=== PATIENT | female | born 1955 | race Caucasian/White ===

== ENCOUNTER 2020-12-29 16:40 | Inpatient (IN) | payer MEDICARE, OTHER ==
[~2020-12-29] VITALS: Ht 165.1 cm; Wt 59.0 kg
[2020-12-29] MEDS ORDERED: AMLO5TAB4 PO (23:34)
[2020-12-29] MEDS ORDERED: ASPI-1420 PO (23:34)
[2020-12-29] MEDS ORDERED: HYPR15DR4 EACHEYE (23:36)
[2020-12-29] MEDS ORDERED: ROSU10TA2 PO (23:37)
[2020-12-29] MEDS ORDERED: LEVO25TA7 PO (23:39)
[2020-12-30] MEDS ORDERED: MAGNESIUM HYDROXIDE 30 ML UDC PO PRN
[2020-12-30] MEDS ORDERED: MAG HYDROX/AL HYDROX/SIMETH 30 ML UDC PO PRN
[2020-12-30 00:13] VITALS: BP 142/87
[2020-12-30] MEDS ORDERED: BLOOD SUGAR DIAGNOSTIC 1 EACH STRIP IN ONE (00:30)
--- NOTE | 2020-12-30 00:51 | NUR ---
GPS ADMISSION NOTE RECEIVED PATIENT FROM [facility]. PATIENT ARRIVED TO UNIT AT APPROX. 2300 VIA STRETCHER WITH 2 EMT ESCORTS. PATIENT ADMITTED ON A 5150 HOLD FOR DTS AND GD. PER HOLD PATIENT IS HAVING COMMAND HALLUCINATIONS TO HARM SELF AND TELLING HER THAT HER CHILDREN ARE . SHE HIT HERSELF WITH A GAVEL 30 TIMES YESTERDAY TO KILL HERSELF. SHE IS PARANOID, LOOKING AROUND THE ROOM AND SEEN TALKING TO SELF. PER DAUGHTER SHE IS NOT SLEEPING, HAS FRIDGE FULL OF FOOD AND NOT EATING. SHE IS UNABLE TO VOICE REASONABLE PLAN OF SELF-CARE. THE 5150 WAS REVIEWED AND THE DOCUMENTATION IN THE 5150 HOLD APPEARS TO REFLECT THE PRESENTATION OF THE PATIENT. UPON FACE TO FACE ASSESSMENT PATIENT IS NOTED TO BE CALM, WITHDRAWN, COOPERATIVE. PATIENT IS CURRENTLY LYING IN BED RESTING COMFORTABLY. BREATHING IS EVEN AND UNLABORED. PATIENT IS ALERT AND ORIENTED X 3 ON ROOM AIR. PATIENT IS AMBULATORY WITH STEADY GAIT. PATIENT DENIES SI/HI AT THIS TIME. PATIENT SIGNED PAPERWORK AND WAS GIVEN PATIENT RIGHT'S BOOKLET AND ADVISED OF HER HOLD. ALL QUESTIONS ANSWERED AT THIS TIME. PATIENT IS UNDER THE PSYCHIATRIC CARE TO DR. BRAN AND MEDICAL CARE TO DR. LEDEZMA. PATIENT BELONGINGS INVENTORIED AND CHECKED FOR CONTRABAND. ALL CONTRABAND REMOVED AND STORED IN PATIENTS LOCKER IN [facility]. PATIENTS ADVANCED DIRECTIVES PREFERENCE, IMMUNIZATIONS QUESTIONER, NECESSARY PAPERWORK COMPLETED AND PLACED IN CHART. SKIN ASSESSMENT COMPLETED ON ADMISSION WITH NO SKIN ISSUES NOTED AT THIS TIME. PATIENT ORIENTED TO ROOM, FLOOR, AND STAFF. PATIENT EDUCATED ON USE OF CALL HU. PATIENT BED SIDE RAILS UP X 2 FOR SAFETY. PATIENTS BED IS LOCKED AND IN LOWEST POSITION. WILL CONTINUE TO MONITOR Q15MIN FOR BEHAVIOR AND SAFETY.
[2020-12-30 06:29] LABS: BASOPHILS % (AUTO) 0.5 % (0.0-2.0); EOSINOPHILS % (AUTO) 1.8 % (0.0-6.0); HEMATOCRIT 42 % (33-45); HEMOGLOBIN 14.2 g/dL (11.5-14.8); LYMPHOCYTES # (AUTO) 2.1 K/uL (0.8-4.8); LYMPHOCYTES % (AUTO) 26.8 % (20.0-44.0); MEAN CORPUSCULAR HGB CONC 34 g/dl (31.0-36.0); MEAN CORPUSCULAR VOLUME 94 fL (82-100); MONOCYTES # (AUTO) 0.7 K/uL (0.1-1.30); MONOCYTES % (AUTO) 8.7 % (2.0-12.0); NEUTROPHILS # (AUTO) 4.8 K/uL (1.8-8.9); NEUTROPHILS % (AUTO) 62.2 % (43.0-81.0); PLATELET COUNT (AUTO) 322 K/uL (150-450); RED BLOOD CELL COUNT(AUTO) 4.48 MIL/uL (4.0-5.2); WHITE BLOOD COUNT (AUTO) 7.7 K/uL (4.3-11.0)
[2020-12-30 07:16] LABS: CALCIUM, SERUM 9.2 mg/dL (8.5-10.1); MAGNESIUM 2.3 mg/dL (1.8-2.4); PHOSPHORUS 3.7 mg/dL (2.5-4.9); POTASSIUM 3.7 mmol/L (3.5-5.1)
[2020-12-30 07:34] LABS: THYROID STIMULATING HORMONE 4.136 uIU/mL (0.358-3.74)
[2020-12-30 08:00] VITALS: BP 125/75
[2020-12-30] MEDS ORDERED: GLUCERNA SHAKE 237 ML CAN PO SCH (08:00)
[2020-12-30] MEDS: LEVOTHYROXINE SODIUM 25 MCG TABLET PO SCH (08:35)
[2020-12-30] MEDS: AMLODIPINE BESYLATE 5 MG TABLET PO SCH (08:35)
[2020-12-30] MEDS: ASPIRIN EC 81 MG TABLET.DR PO SCH (08:35)
[2020-12-30] MEDS: POLYVINYL ALCOHOL 15 ML BOTTLE OP SCH (08:36)
--- NOTE | 2020-12-30 09:52 | NUR ---
MARIA ISABEL Initial Discharge: Patient currently resides home alone at [address] [place] [address]; ([phone]). Patient stated she is unsure if she would want to go back home or would want this technical report writer to find her a SNF. MARIA ISABEL will work with the MD and family to coordinate appropriate discharge.
--- NOTE | 2020-12-30 09:58 | NUR ---
Social Work Note/Substance Abuse Intervention: Patient was provided with a brief substance abuse intervention and referred to [facility] ([phone]), [facility] ([phone]), and [facility] ([phone]) for drinking beer everyday.
--- NOTE | 2020-12-30 11:46 | NUR ---
SW Family Contact: SW contacted patient's daughter Treva ([phone]) and left a detailed voicemail in regards to gathering collateral and discussing treatment/discharge plan.
[2020-12-30] MEDS: THIAMINE HCL 100 MG TABLET PO SCH (13:39)
--- NOTE | 2020-12-30 14:11 | NUR ---
SW Family Contact: SW contacted patient's daughter Treva ([phone]) and discussed patient's discharge/treatment plan. SW expressed that patient is unsure if she would want to go back home or would want a SNF. Daughter stated pt can make a decision in terms of what would be best for her as family wants pt to improve.
[2020-12-30] MEDS: ENSURE ENLIVE 237 ML LIQUID (VANILLA) PO SCH ×2 (14:43→16:00)
[2020-12-30] MEDS: ACETAMINOPHEN 325 MG TABLET PO PRN (15:59)
[2020-12-30 16:00] VITALS: BP 149/81
[2020-12-30] MEDS: ATORVASTATIN 40 MG TABLET PO SCH (18:08)
[2020-12-30 20:00] VITALS: BP 135/82
[2020-12-30] MEDS: ZOLPIDEM TARTRATE 5 MG TABLET PO PRN (20:55)
[2020-12-30] MEDS: QUETIAPINE FUMARATE 25 MG TABLET PO SCH (21:05)
[2020-12-31 08:00] VITALS: BP 126/90
[2020-12-31] MEDS: ENSURE ENLIVE 237 ML LIQUID (VANILLA) PO SCH ×2 (08:30→16:50)
[2020-12-31] MEDS: MULTIPLE VIT (LYCOPENE/FA/MV,CA,IRON,MIN/LUT)1 TAB PO SCH (08:33)
[2020-12-31] MEDS: ASPIRIN EC 81 MG TABLET.DR PO SCH (08:33)
[2020-12-31] MEDS: Fluoxetine 10 mg capsule PO SCH (08:33)
[2020-12-31] MEDS: THIAMINE HCL 100 MG TABLET PO SCH (08:34)
[2020-12-31] MEDS: LEVOTHYROXINE SODIUM 25 MCG TABLET PO SCH (08:34)
[2020-12-31] MEDS: AMLODIPINE BESYLATE 5 MG TABLET PO SCH (08:34)
[2020-12-31] MEDS: LORAZEPAM 1 MG TABLET PO PRN (08:34)
[2020-12-31] MEDS: POLYVINYL ALCOHOL 15 ML BOTTLE OP SCH (08:35)
[2020-12-31 16:00] VITALS: BP 125/78
[2020-12-31] MEDS: ATORVASTATIN 40 MG TABLET PO SCH (17:07)
[2020-12-31 20:30] VITALS: BP 151/91
[2020-12-31] MEDS: QUETIAPINE FUMARATE 25 MG TABLET PO SCH (21:12)
[2020-12-31] MEDS: ZOLPIDEM TARTRATE 5 MG TABLET PO PRN (21:44)
--- NOTE | 2020-12-31 21:44 | NUR ---
GPS-RN NOTES: INSOMNIA PATIENT C/O INABILITY TO SLEEP. PRN AMBIEN 5MG PO GIVEN ORDERED. WILL CONTINUE TO MONITOR.
[2021-01-01 08:00] VITALS: BP 153/80
[2021-01-01] MEDS: LEVOTHYROXINE SODIUM 25 MCG TABLET PO SCH (08:02)
[2021-01-01] MEDS: MULTIPLE VIT (LYCOPENE/FA/MV,CA,IRON,MIN/LUT)1 TAB PO SCH (08:26)
[2021-01-01] MEDS: POLYVINYL ALCOHOL 15 ML BOTTLE OP SCH (08:26)
[2021-01-01] MEDS: ASPIRIN EC 81 MG TABLET.DR PO SCH (08:26)
[2021-01-01] MEDS: Fluoxetine 10 mg capsule PO SCH (08:26)
[2021-01-01] MEDS: THIAMINE HCL 100 MG TABLET PO SCH (08:26)
[2021-01-01] MEDS: AMLODIPINE BESYLATE 5 MG TABLET PO SCH (08:27)
[2021-01-01] MEDS: ENSURE ENLIVE 237 ML LIQUID (VANILLA) PO SCH ×2 (08:36→16:30)
--- NOTE | 2021-01-01 09:00 | NUR ---
RN NOTE- PT IS INTERNALLY PREOCCUPIED, PARANOID AND MUMBLING TO SELF. CALM INTERACTIVE DENIES ALL MED COMPLIANT
[2021-01-01 16:00] VITALS: BP 124/75
[2021-01-01] MEDS: NICOTINE PATCH (7MG) 7 MG PATCH.TD24 TD SCH (16:30)
[2021-01-01] MEDS: ATORVASTATIN 40 MG TABLET PO SCH (17:25)
[2021-01-01] MEDS: LORAZEPAM 1 MG TABLET PO PRN (18:10)
--- NOTE | 2021-01-01 18:10 | NUR ---
RN NOTE- PT INTERNALLY PREOCCUPIED TODAY, HEARING VOICES, ENCOURAGED PT TO BE I DAY ROOM AROUND STAFF AND OTHERS. ANXIOUS NOW. PACING. ATIVAN 1 MG ADMINISTERED
--- NOTE | 2021-01-01 19:30 | NUR ---
GPS RN NOTES RECEIVED OUTSIDE HER ROOM,SITTING ON CHAIR BY THE HALLWAYS,A/O X1-2,NEEDS TO BE RE ORIENTED ON DAYS AND DATE,AMBULATE WITH STEADY GAIT,CALM,REDIRECTABLE,MED COMPLIANT,WILL CONTINUE TO TO MONITOR BEHAVIOR
[2021-01-01 20:16] VITALS: BP 132/81
[2021-01-01] MEDS: ZOLPIDEM TARTRATE 5 MG TABLET PO PRN (21:16)
[2021-01-01] MEDS: QUETIAPINE FUMARATE 25 MG TABLET PO SCH (21:16)
--- NOTE | 2021-01-01 21:16 | NUR ---
GPS RN NOTES C/O INSOMNIA,AMBIEN 5MG PO GIVEN ORDERED.
--- NOTE | 2021-01-02 05:00 | NUR ---
GPS RN NOTES AWAKE THIS TIME,SITTING ON CHAIR BY TELEPHONE STATION.
--- NOTE | 2021-01-02 06:57 | NUR ---
GPS RN NOTES STILL SITTING BY THE TELEPHONE SNYDER,ENCOURAGED TO GO BACK TO BED BUR REFUSED.SAYS I WANNA TALK TO MY SON BEFORE I GO,DENIES HEARING VOICES,COMMUNICATE WHEN ENGAGED.AMBULATE WITH STEADY GAIT.
[2021-01-02 08:00] VITALS: BP 115/75
[2021-01-02] MEDS: ENSURE ENLIVE 237 ML LIQUID (VANILLA) PO SCH ×2 (08:19→16:53)
[2021-01-02] MEDS: POLYVINYL ALCOHOL 15 ML BOTTLE OP SCH (08:20)
[2021-01-02] MEDS: AMLODIPINE BESYLATE 5 MG TABLET PO SCH (08:23)
[2021-01-02] MEDS: THIAMINE HCL 100 MG TABLET PO SCH (08:23)
[2021-01-02] MEDS: MULTIPLE VIT (LYCOPENE/FA/MV,CA,IRON,MIN/LUT)1 TAB PO SCH (08:23)
[2021-01-02] MEDS: NICOTINE PATCH (7MG) 7 MG PATCH.TD24 TD SCH (08:23)
[2021-01-02] MEDS: Fluoxetine 10 mg capsule PO SCH (08:23)
[2021-01-02] MEDS: LEVOTHYROXINE SODIUM 25 MCG TABLET PO SCH (08:23)
[2021-01-02] MEDS: ASPIRIN EC 81 MG TABLET.DR PO SCH (08:23)
[2021-01-02 16:00] VITALS: BP 142/68
[2021-01-02] MEDS: ATORVASTATIN 40 MG TABLET PO SCH (16:53)
[2021-01-02 19:57] VITALS: BP 152/87
[2021-01-02] MEDS: ZOLPIDEM TARTRATE 5 MG TABLET PO PRN (22:28)
[2021-01-02] MEDS: QUETIAPINE FUMARATE 25 MG TABLET PO SCH (22:28)
[2021-01-02] MEDS: ACETAMINOPHEN 325 MG TABLET PO PRN (22:28)
--- NOTE | 2021-01-02 23:31 | NUR ---
GPS RN NOTE - INSOMNIA PT NOTED WITH WANDERING AND DIFFICULTY FALLING ASLEEP. ADMINISTERED AMBIEN ORDERED. WILL REASSESS FOR SLEEP IN 1 HOUR.
--- NOTE | 2021-01-03 07:30 | NUR ---
PT RECEIVED RESTING COMFORTABLE IN BED. NO S/S OR C/O PAIN OR DISTRESS NOTED. SIDE RAILS UP X2, CALL LIGHT LEFT WITHIN REACH. WILL CONTINUE PLAN OF CARE.
[2021-01-03 08:00] VITALS: BP 140/80
[2021-01-03] MEDS: NICOTINE PATCH (7MG) 7 MG PATCH.TD24 TD SCH (09:27)
[2021-01-03] MEDS: Fluoxetine 10 mg capsule PO SCH (09:27)
[2021-01-03] MEDS: AMLODIPINE BESYLATE 5 MG TABLET PO SCH (09:27)
[2021-01-03] MEDS: ASPIRIN EC 81 MG TABLET.DR PO SCH (09:28)
[2021-01-03] MEDS: POLYVINYL ALCOHOL 15 ML BOTTLE OP SCH (09:28)
[2021-01-03] MEDS: MULTIPLE VIT (LYCOPENE/FA/MV,CA,IRON,MIN/LUT)1 TAB PO SCH (09:28)
[2021-01-03] MEDS: THIAMINE HCL 100 MG TABLET PO SCH (09:28)
[2021-01-03] MEDS: LEVOTHYROXINE SODIUM 25 MCG TABLET PO SCH (09:28)
[2021-01-03] MEDS: ENSURE ENLIVE 237 ML LIQUID (VANILLA) PO SCH ×2 (09:29→17:43)
[2021-01-03 16:00] VITALS: BP 131/74
[2021-01-03] MEDS: ATORVASTATIN 40 MG TABLET PO SCH (17:42)
--- NOTE | 2021-01-03 18:34 | NUR ---
CHANGE OF SHIFT REPORT PT RESTING COMFORTABLY IN BED. NO S/S OR C/O PAIN OR DISTRESS NOTED. SIDE RAILS UP X2. PT KEPT CLEAN, DRY, AND COMFORTABLE. NO SIGNIFICANT CHANGES SINCE PREVIOUS SHIFT. WILL GIVE REPORT TO VALERIE CROWE.
[2021-01-03] MEDS: LORAZEPAM 1 MG TABLET PO PRN (19:43)
--- NOTE | 2021-01-03 19:43 | NUR ---
RN GPS notes Pt is feeling anxious and requesting meds. Administered ativan 1 mg/po/prn as ordered. Safety precautions is maintained. Will continue to monitor.
[2021-01-03 19:58] VITALS: BP 163/98
[2021-01-03 20:00] VITALS: BP 133/72
[2021-01-03] MEDS: QUETIAPINE FUMARATE 25 MG TABLET PO SCH (21:32)
[2021-01-04] MEDS: LEVOTHYROXINE SODIUM 25 MCG TABLET PO SCH (07:30)
[2021-01-04 08:00] VITALS: BP 122/73
[2021-01-04] MEDS: AMLODIPINE BESYLATE 5 MG TABLET PO SCH (08:17)
[2021-01-04] MEDS: MULTIPLE VIT (LYCOPENE/FA/MV,CA,IRON,MIN/LUT)1 TAB PO SCH (08:19)
[2021-01-04] MEDS: THIAMINE HCL 100 MG TABLET PO SCH (08:19)
[2021-01-04] MEDS: NICOTINE PATCH (7MG) 7 MG PATCH.TD24 TD SCH (08:19)
[2021-01-04] MEDS: ASPIRIN EC 81 MG TABLET.DR PO SCH (08:20)
[2021-01-04] MEDS: ENSURE ENLIVE 237 ML LIQUID (VANILLA) PO SCH ×2 (08:20→17:03)
[2021-01-04] MEDS: POLYVINYL ALCOHOL 15 ML BOTTLE OP SCH (08:22)
[2021-01-04] MEDS: FLUOXETINE HCL 20 MG/5 ML UDC PO SCH (09:21)
--- NOTE | 2021-01-04 12:04 | NUR ---
Court Hearing: Patient's court hearing for [id number] was today and it was upheld for GD.
[2021-01-04 16:15] VITALS: BP 134/85
[2021-01-04] MEDS: ATORVASTATIN 40 MG TABLET PO SCH (17:03)
[2021-01-04] MEDS: LORAZEPAM 1 MG TABLET PO PRN (18:21)
--- NOTE | 2021-01-04 18:29 | NUR ---
PATIENT ANXIOUS ,IRRITABLE MEDICATED WITH ATIVAN 1MG ,WILL CONTINUE TO MONITOR.
[2021-01-04 20:03] VITALS: BP 144/89
[2021-01-04] MEDS: QUETIAPINE FUMARATE 25 MG TABLET PO SCH (21:11)
[2021-01-04] MEDS: ZOLPIDEM TARTRATE 5 MG TABLET PO PRN (22:01)
[2021-01-05 08:00] VITALS: BP 131/77
[2021-01-05] MEDS: MULTIPLE VIT (LYCOPENE/FA/MV,CA,IRON,MIN/LUT)1 TAB PO SCH (08:38)
[2021-01-05] MEDS: ASPIRIN EC 81 MG TABLET.DR PO SCH (08:38)
[2021-01-05] MEDS: THIAMINE HCL 100 MG TABLET PO SCH (08:38)
[2021-01-05] MEDS: LEVOTHYROXINE SODIUM 25 MCG TABLET PO SCH (08:38)
[2021-01-05] MEDS: NICOTINE PATCH (7MG) 7 MG PATCH.TD24 TD SCH (08:38)
[2021-01-05] MEDS: AMLODIPINE BESYLATE 5 MG TABLET PO SCH (08:39)
[2021-01-05] MEDS: ENSURE ENLIVE 237 ML LIQUID (VANILLA) PO SCH ×2 (08:39→17:29)
[2021-01-05] MEDS: POLYVINYL ALCOHOL 15 ML BOTTLE OP SCH (08:44)
[2021-01-05] MEDS: FLUOXETINE HCL 20 MG/5 ML UDC PO SCH (08:46)
[2021-01-05] MEDS: ARIPIPRAZOLE 5 MG TABLET PO SCH ×2 (12:00→12:05)
--- NOTE | 2021-01-05 12:17 | NUR ---
RN-NOTES PATIENT REFUSED ABILIFY 5MG P.O EXPLAINED RISK AND BENEFITS BUT PATIENT STILL REFUSED. OFFERED X3
--- NOTE | 2021-01-05 13:15 | NUR ---
SW Family Contact: SW spoke with patient's daughter Treva ([phone]) who gave three nursing facility options for this SW to fax clinicals: [facility] ([phone]), [facility] ([phone]), and [facility] ([phone]). SW gave daughter another option of [facility] SNF. Daughter would want this SW to send to all.
--- NOTE | 2021-01-05 13:17 | NUR ---
SNF Contact/Referral: MARIA ISABEL contacted [facility] ([phone]) and spoke with Amy from Admissions ([phone], F:[phone]) who stated that they will review pt's clinicals. MARIA ISABEL contacted [facility] ([phone]), and [facility] ([phone]) who stated that they are not psych focused facilities SW faxed clinicals to [facility] [[email or web address]] ([phone]) to Justyn grace for placement option.
[2021-01-05 16:00] VITALS: BP 142/85
[2021-01-05] MEDS: ATORVASTATIN 40 MG TABLET PO SCH (17:29)
--- NOTE | 2021-01-05 17:30 | NUR ---
RN-NOTES PATIENT REFUSED LIPITOR 80 MG P.O EXPLAINED RISK AND BENEFITS BUT PATIENT STILL REFUSED. OFFERED X3
[2021-01-05 20:00] VITALS: BP 146/88
[2021-01-05] MEDS: TRAZODONE 50 MG TABLET PO SCH (21:09)
[2021-01-06 08:00] VITALS: BP 148/73
[2021-01-06] MEDS: LEVOTHYROXINE SODIUM 25 MCG TABLET PO SCH (08:38)
[2021-01-06] MEDS: NICOTINE PATCH (7MG) 7 MG PATCH.TD24 TD SCH (08:38)
[2021-01-06] MEDS: MULTIPLE VIT (LYCOPENE/FA/MV,CA,IRON,MIN/LUT)1 TAB PO SCH (09:49)
[2021-01-06] MEDS: THIAMINE HCL 100 MG TABLET PO SCH (09:49)
[2021-01-06] MEDS: ENSURE ENLIVE 237 ML LIQUID (VANILLA) PO SCH ×2 (09:49→17:01)
[2021-01-06] MEDS: ARIPIPRAZOLE 5 MG TABLET PO SCH (09:49)
[2021-01-06] MEDS: ASPIRIN EC 81 MG TABLET.DR PO SCH (09:50)
[2021-01-06] MEDS: AMLODIPINE BESYLATE 5 MG TABLET PO SCH (09:50)
[2021-01-06] MEDS: FLUOXETINE HCL 20 MG/5 ML UDC PO SCH (09:51)
[2021-01-06] MEDS: POLYVINYL ALCOHOL 15 ML BOTTLE OP SCH (09:51)
--- NOTE | 2021-01-06 15:41 | NUR ---
SNF Contac SW contacted [facility] ([phone]) and spoke with Amy from Admissions ([phone], F:[phone]) who stated they will accept pt but would have to see if they have a bed available at the time of her dc. MARIA ISABEL spoke with Kenzie admissions from [facility] ([phone]) who stated that they accepted pt.
--- NOTE | 2021-01-06 15:43 | NUR ---
MARIA ISABEL Family Contact: MARIA ISABEL contacted patient's daughter Treva ([phone]) and stated that [facility] accepted pt but would need to see if they have a bed available at the time of her dc. SW shared [facility] also accepted pt and are saving a bed. Daughter is agreeable to whichever one pt goes too.
[2021-01-06 16:00] VITALS: BP 123/75
[2021-01-06] MEDS: ATORVASTATIN 40 MG TABLET PO SCH (17:01)
--- NOTE | 2021-01-06 18:56 | NUR ---
RN-NOTES PATIENT C/O CONSTIPATION AND REQUESTING FOR MOM.MOM 30ML GIVEN PRN ORDER. WILL ENDORSE TO INCOMING NURSE TO CONTINUE MONITORING AND CONTINUITY OF CARE.
[2021-01-06 20:01] VITALS: BP 143/80
[2021-01-06] MEDS: TRAZODONE 50 MG TABLET PO SCH (21:06)
[2021-01-07] MEDS: ENSURE ENLIVE 237 ML LIQUID (VANILLA) PO SCH ×2 (07:56→16:50)
[2021-01-07] MEDS: POLYVINYL ALCOHOL 15 ML BOTTLE OP SCH (07:56)
[2021-01-07 08:00] VITALS: BP 122/78
[2021-01-07] MEDS: LEVOTHYROXINE SODIUM 25 MCG TABLET PO SCH (08:01)
[2021-01-07] MEDS: ASPIRIN EC 81 MG TABLET.DR PO SCH (08:02)
[2021-01-07] MEDS: ARIPIPRAZOLE 5 MG TABLET PO SCH (08:02)
[2021-01-07] MEDS: THIAMINE HCL 100 MG TABLET PO SCH (08:02)
[2021-01-07] MEDS: AMLODIPINE BESYLATE 5 MG TABLET PO SCH (08:02)
[2021-01-07] MEDS: MULTIPLE VIT (LYCOPENE/FA/MV,CA,IRON,MIN/LUT)1 TAB PO SCH (08:02)
[2021-01-07] MEDS: NICOTINE PATCH (7MG) 7 MG PATCH.TD24 TD SCH (08:02)
[2021-01-07] MEDS: LORAZEPAM 1 MG TABLET PO PRN ×2 (08:02→22:01)
[2021-01-07] MEDS: FLUOXETINE HCL 20 MG/5 ML UDC PO SCH (08:05)
[2021-01-07 16:00] VITALS: BP 121/73
[2021-01-07] MEDS: ATORVASTATIN 40 MG TABLET PO SCH (17:36)
[2021-01-07 19:59] VITALS: BP 126/68
--- NOTE | 2021-01-07 22:03 | NUR ---
GPS RN NOTES: Ativan 1mg given PO at 2201 d/t anxiety, restlessness. Will continue to monitor.
[2021-01-07] MEDS: TRAZODONE 50 MG TABLET PO SCH (22:32)
--- NOTE | 2021-01-08 07:03 | NUR ---
GPS RN CLOSING NOTES: PATIENT IS CURRENTLY LAYING IN BED SLEEPING COMFORTABLY. PATIENT SLEPT 9HRS THIS SHIFT. NO S/S OF DISTRESS. RESPIRATION EVEN AND UNLABORED WITH EQUAL RISE AND FALL OF THE CHEST, ON ROOM AIR. ALL PATIENT CARE NEEDS HAVE BEEN MET ANTICIPATED. BED IN LOWEST POSITION AND LOCKED, SIDE RAILS UP X2 FOR SAFETY. WILL CONTINUE TO MONITOR AND AND ENDORSE TO AM SHIFT.
[2021-01-08 08:00] VITALS: BP 112/64
[2021-01-08] MEDS: LEVOTHYROXINE SODIUM 25 MCG TABLET PO SCH (08:11)
[2021-01-08] MEDS: AMLODIPINE BESYLATE 5 MG TABLET PO SCH (08:11)
[2021-01-08] MEDS: MULTIPLE VIT (LYCOPENE/FA/MV,CA,IRON,MIN/LUT)1 TAB PO SCH (08:11)
[2021-01-08] MEDS: FLUOXETINE HCL 20 MG/5 ML UDC PO SCH (08:11)
[2021-01-08] MEDS: THIAMINE HCL 100 MG TABLET PO SCH (08:12)
[2021-01-08] MEDS: ASPIRIN EC 81 MG TABLET.DR PO SCH (08:12)
[2021-01-08] MEDS: NICOTINE PATCH (7MG) 7 MG PATCH.TD24 TD SCH (08:12)
[2021-01-08] MEDS: ARIPIPRAZOLE 5 MG TABLET PO SCH (08:13)
[2021-01-08] MEDS: POLYVINYL ALCOHOL 15 ML BOTTLE OP SCH (08:14)
[2021-01-08] MEDS: ENSURE ENLIVE 237 ML LIQUID (VANILLA) PO SCH ×2 (08:20→16:22)
[2021-01-08 16:00] VITALS: BP 134/85
[2021-01-08] MEDS: ATORVASTATIN 40 MG TABLET PO SCH (17:10)
[2021-01-08 20:00] VITALS: BP_SYST 116; BP_DIAS 62; BP_DIAS 65
[2021-01-08] MEDS: TRAZODONE 50 MG TABLET PO SCH (21:52)
[2021-01-09] MEDS: LORAZEPAM 1 MG TABLET PO PRN (02:21)
--- NOTE | 2021-01-09 02:21 | NUR ---
RN NOTES: AWAKE, REFUSE TO GO BACK IN HER ROOM AFTER SNACK WAS GIVEN TO HER, WALKING IN THE AILES AND GOING TO AND FRO, TALKING TO SELF, PRN MEDICATION GIVEN.
--- NOTE | 2021-01-09 06:26 | NUR ---
RN NOTES: AROUND 0300 WALKING AROUND, TRYING TO OPEN THE DOOR, REDIRECTED, WENT TO TV ROOM AND SIT THERE FOR AWHILE AFTER 20-30 MIN. ACCOMPANIED BACK TO HER ROOM, SHE FOLLOWED THE INSTRUCTION AND WENT BACK TO SLEEP AT AROUND 0400.
[2021-01-09 08:00] VITALS: BP 109/72
[2021-01-09] MEDS: LEVOTHYROXINE SODIUM 25 MCG TABLET PO SCH (08:05)
[2021-01-09] MEDS: ARIPIPRAZOLE 5 MG TABLET PO SCH (08:06)
[2021-01-09] MEDS: MULTIPLE VIT (LYCOPENE/FA/MV,CA,IRON,MIN/LUT)1 TAB PO SCH (08:07)
[2021-01-09] MEDS: NICOTINE PATCH (7MG) 7 MG PATCH.TD24 TD SCH (08:07)
[2021-01-09] MEDS: AMLODIPINE BESYLATE 5 MG TABLET PO SCH (08:07)
[2021-01-09] MEDS: ASPIRIN EC 81 MG TABLET.DR PO SCH (08:07)
[2021-01-09] MEDS: THIAMINE HCL 100 MG TABLET PO SCH (08:07)
[2021-01-09] MEDS: ENSURE ENLIVE 237 ML LIQUID (VANILLA) PO SCH ×2 (08:08→16:11)
[2021-01-09] MEDS: FLUOXETINE HCL 20 MG/5 ML UDC PO SCH (08:09)
[2021-01-09] MEDS: POLYVINYL ALCOHOL 15 ML BOTTLE OP SCH (08:09)
[2021-01-09 16:00] VITALS: BP 131/83
[2021-01-09] MEDS: ATORVASTATIN 40 MG TABLET PO SCH (17:13)
[2021-01-09 19:38] VITALS: BP 120/69
[2021-01-09] MEDS: TRAZODONE 50 MG TABLET PO SCH (21:01)
[2021-01-10] MEDS: LEVOTHYROXINE SODIUM 25 MCG TABLET PO SCH (07:30)
[2021-01-10 08:00] VITALS: BP 133/77
[2021-01-10] MEDS: AMLODIPINE BESYLATE 5 MG TABLET PO SCH (08:30)
[2021-01-10] MEDS: THIAMINE HCL 100 MG TABLET PO SCH (08:31)
[2021-01-10] MEDS: ARIPIPRAZOLE 5 MG TABLET PO SCH (08:31)
[2021-01-10] MEDS: ASPIRIN EC 81 MG TABLET.DR PO SCH (08:32)
[2021-01-10] MEDS: NICOTINE PATCH (7MG) 7 MG PATCH.TD24 TD SCH (08:33)
[2021-01-10] MEDS: MULTIPLE VIT (LYCOPENE/FA/MV,CA,IRON,MIN/LUT)1 TAB PO SCH (08:33)
[2021-01-10] MEDS: FLUOXETINE HCL 20 MG/5 ML UDC PO SCH (08:35)
[2021-01-10] MEDS: POLYVINYL ALCOHOL 15 ML BOTTLE OP SCH (08:35)
[2021-01-10] MEDS: ENSURE ENLIVE 237 ML LIQUID (VANILLA) PO SCH ×2 (08:39→16:39)
[2021-01-10 16:00] VITALS: BP 148/89
[2021-01-10] MEDS: ATORVASTATIN 40 MG TABLET PO SCH (17:47)
[2021-01-10 19:52] VITALS: BP 148/78
[2021-01-10] MEDS: TRAZODONE 50 MG TABLET PO SCH (21:38)
[2021-01-11] MEDS: LORAZEPAM 1 MG TABLET PO PRN (00:44)
[2021-01-11] MEDS: LEVOTHYROXINE SODIUM 25 MCG TABLET PO SCH (07:30)
[2021-01-11 08:00] VITALS: BP 114/76
[2021-01-11] MEDS: FLUOXETINE HCL 20 MG/5 ML UDC PO SCH (08:39)
[2021-01-11] MEDS: MULTIPLE VIT (LYCOPENE/FA/MV,CA,IRON,MIN/LUT)1 TAB PO SCH (08:40)
[2021-01-11] MEDS: POLYVINYL ALCOHOL 15 ML BOTTLE OP SCH (08:40)
[2021-01-11] MEDS: THIAMINE HCL 100 MG TABLET PO SCH (08:41)
[2021-01-11] MEDS: NICOTINE PATCH (7MG) 7 MG PATCH.TD24 TD SCH (08:41)
[2021-01-11] MEDS: ASPIRIN EC 81 MG TABLET.DR PO SCH (08:41)
[2021-01-11] MEDS: ENSURE ENLIVE 237 ML LIQUID (VANILLA) PO SCH ×2 (08:42→17:29)
[2021-01-11] MEDS: ARIPIPRAZOLE 5 MG TABLET PO SCH (08:42)
[2021-01-11] MEDS: AMLODIPINE BESYLATE 5 MG TABLET PO SCH (08:43)
--- NOTE | 2021-01-11 09:00 | NUR ---
MARIA ISABEL Family Contact: SW contacted patient's daughter Treva ([phone]) and notified of pt's discharge for tomorrow to [facility].
[2021-01-11 16:00] VITALS: BP 108/71
[2021-01-11] MEDS: ATORVASTATIN 40 MG TABLET PO SCH (18:11)
[2021-01-11 20:00] VITALS: BP 127/87
[2021-01-11] MEDS: TRAZODONE 50 MG TABLET PO SCH (21:23)
[2021-01-12] MEDS: LEVOTHYROXINE SODIUM 25 MCG TABLET PO SCH (07:30)
--- NOTE | 2021-01-12 07:58 | NUR ---
Discharge Note: Patient will be discharged to detention facility [facility] located at [address] [place] [phone]; ([phone]). Please arrange Ambulance transportation. Work Distributor spoke with Amy, Event Executive at the facility who stated patient will be accepted at facility today. Patient is alert and oriented x2 and is not able to plan for self-care at this time but is willing to accept care provided for her at the facility. Patient denies suicidal or homicidal ideation and is aware and agreeable with discharge plans. Patients daughter Treva ([phone]) is aware and agreeable. Patient will follow-up at the facility with Psychiatrist Dr. Sun located at [address], [place]; ([phone]) and Ehr Trainer [facility] Madison located at [address] [facility], [place], [place]; ([phone]). Patient was provided with a brief substance abuse intervention and referred to [facility] , [facility] , and [facility] . Patient presents with euthymic mood and congruent affect.
[2021-01-12 08:00] VITALS: BP 117/74
[2021-01-12 09:13] VITALS: BP 117/74
[2021-01-12] MEDS: THIAMINE HCL 100 MG TABLET PO SCH (09:13)
[2021-01-12] MEDS: AMLODIPINE BESYLATE 5 MG TABLET PO SCH (09:13)
[2021-01-12] MEDS: ARIPIPRAZOLE 5 MG TABLET PO SCH (09:13)
[2021-01-12] MEDS: ASPIRIN EC 81 MG TABLET.DR PO SCH (09:14)
[2021-01-12] MEDS: MULTIPLE VIT (LYCOPENE/FA/MV,CA,IRON,MIN/LUT)1 TAB PO SCH (09:14)
[2021-01-12] MEDS: NICOTINE PATCH (7MG) 7 MG PATCH.TD24 TD SCH (09:14)
[2021-01-12] MEDS: FLUOXETINE HCL 20 MG/5 ML UDC PO SCH (09:15)
[2021-01-12] MEDS: POLYVINYL ALCOHOL 15 ML BOTTLE OP SCH (09:16)
[2021-01-12] MEDS: ENSURE ENLIVE 237 ML LIQUID (VANILLA) PO SCH (09:16)
--- NOTE | 2021-01-12 15:53 | NUR ---
HIGH CLIMBER NOTE:PATIENT DISCHARGED TO POST ACUTE NURSING FACILITY IN STABLE CONDITION ,VS STABLE .COMPLIANT WITH MEDICATIONS COOPERATIVE WITH TREATMENT PLANS .PATIENT DENIES SI/HI/AVH .BEHAVIOR IMPROVED ,PSYCHIATRIC TX PLANS MET ,MEDICAL TX PLANS DEFERRED FOR CONTINUAL MONITORING ,EDUCATED PT ABOUT AFTER CARE PLAN (EXIT CARE)AND COPY PROVIDED RETURNED BELONGINGS TO PATIENT .REPORT GIVEN TO MACK CROWE.PATIENT DISCHARGED AT 1430 WITH AMBULANCE.
== END 2021-01-12 14:30 | DRG 885 ==
LOC: GPS 22:54
PROVIDERS: ADMIT Psychiatry & Neurology Psychiatry; ATTEND Registered Nurse
DX: F33.3 Major depressive disorder, recurrent, severe with psychotic symptoms (principal); R45.851 Suicidal ideations; I10 Essential (primary) hypertension; E78.5 Hyperlipidemia, unspecified; E03.9 Hypothyroidism, unspecified; F10.10 Alcohol abuse, uncomplicated; Z79.899 Other long term (current) drug therapy; Z73.6 Limitation of activities due to disability; F29 Unspecified psychosis not due to a substance or known physiological condition; Z20.822 Contact with and (suspected) exposure to COVID-19; T73.0XXA Starvation, initial encounter; X58.XXXA Exposure to other specified factors, initial encounter; Z91.51 Personal history of suicidal behavior
CPT/HCPCS: 36415; 80048-TC; 80061-TC; 82962-TC; 83735-TC; 84100-TC; 84443-TC; 85025-TC; 87081-TC